=== PATIENT | male | born 1965 | race Caucasian/White ===

== ENCOUNTER 2017-05-13 11:55 | Emergency (ER) | payer OTHER ==
[~2017-05-13] VITALS: Ht 185.4 cm; Wt 104.3 kg
[2017-05-13] MEDS ORDERED: LABETALOL HCL 5 MG/ML ML 20ML VIAL IV ONE (12:15)
[2017-05-13] MEDS ORDERED: cloNIDine HCL 0.1 MG TAB PO ONE (12:15)
[2017-05-13] MEDS ORDERED: ONDANSETRON HCL 4 MG/2 ML VIAL IV ONE (12:30)
[2017-05-13] MEDS ORDERED: PANTOPRAZOLE 40 MG/10 ML VIAL IV ONE (12:30)
[2017-05-13] MEDS ORDERED: MORPHINE SULF INJ 2 MG/ML SYRINGE 1ML IV ONE (12:30)
[2017-05-13 12:54] LABS: Basophils # (auto) 0.1 uL; Basophils % (auto) 1.2 % (0.0-2.0); Eosinophils # (auto) 0.2 uL; Eosinophils % (auto) 2.6 % (0.0-7.0); Hemoglobin 15.7 g/dL (13.5-17.5); Lymphocytes # (auto) 1.3 uL; Lymphocytes % (auto) 17.8 % (10.0-50.0); Mean Corpuscular Hemoglobin 29.4 pg (28.0-32.0); Mean Corpuscular Hgb Conc. 34.1 g/dL (32.0-36.0); Mean Corpuscular Volume 86.2 fL (80.0-100.0); Mean Platelet Volume 10.1 fL (6.9-10.8); Monocytes # (auto) 1.1 uL; Neutrophils # (auto) 4.7 uL; Neutrophils % (auto) 63.4 % (37.0-80.0); Nucleated Red Blood Cells % 0.1 %; Platelet Count (auto) 130 10^3/uL (140-450); Red Cell Distribution Width 13.4 % (11.8-14.3); White Blood Cell 7.4 10^3/uL (4.4-10.8)
[2017-05-13 13:11] LABS: Anion Gap 9 (5-15); BUN/Creatinine Ratio 10.4; Blood Urea Nitrogen 12 mg/dL (7-18); Carbon Dioxide 22 mmol/L (21-32); Chloride 106 mmol/L (98-107); GFR African American 87 mL/min; GFR Non-African American 72 mL/min; Glucose 100 mg/dL (74-106); Potassium 3.8 mmol/L (3.5-5.1); Sodium 137 mmol/L (136-145)
[2017-05-13 13:12] LABS: Albumin 4.1 g/dL (3.4-5.0); Alkaline Phosphatase 89 U/L (45-117); Aspartate Aminotransferase 18 U/L (15-37); Bilirubin, Total 0.5 mg/dL (0.2-1.0); Calcium 8.9 mg/dL (8.5-10.1); Total Protein 8.2 g/dL (6.4-8.2)
[2017-05-13 13:13] LABS: Amylase 37 U/L (25-115)
[2017-05-13 13:30] LABS: Urine Bilirubin Negative (Negative); Urine Blood Negative /uL (Negative); Urine Color Yellow (Yellow); Urine Glucose Normal (Normal); Urine Ketone Negative (Negative); Urine Mucus FEW (None Seen); Urine Nitrite Negative (Negative); Urine RBC 1 /hpf (0 - 3); Urine Urobilinogen Normal (Negative); Urine pH 5.5 (5.0-8.0)
[2017-05-13 13:42] VITALS: BP 147/84
== END 2017-05-13 13:53 | disposition home or self-care (01) ==
LOC: ER 11:55
DX: K40.90 Unilateral inguinal hernia, without obstruction or gangrene, not specified as recurrent (principal); I10 Essential (primary) hypertension; F17.210 Nicotine dependence, cigarettes, uncomplicated; Z86.19 Personal history of other infectious and parasitic diseases
CPT/HCPCS: 36415; 74176; 80053; 81001; 82150; 83690; 84484; 85025; 93005; 96374; 96375; 99285; C9113; J2270; J2405

== ENCOUNTER 2017-06-11 12:50 | Emergency (ER) | payer OTHER ==
[~2017-06-11] VITALS: Ht 185.4 cm; Wt 90.7 kg
[2017-06-11 13:25] VITALS: BP 160/104
== END 2017-06-11 15:43 | disposition home or self-care (01) ==
LOC: ER 13:08
DX: I10 Essential (primary) hypertension (principal); F17.210 Nicotine dependence, cigarettes, uncomplicated; Z76.0 Encounter for issue of repeat prescription